=== PATIENT | female | born 1975 | race American Indian/Alaskan Native ===

== ENCOUNTER 2017-08-04 10:41 | Outpatient (CLI) | payer OTHER ==
--- NOTE | 2017-08-04 12:16 | XRay Report ---
LUMBOSACRAL SPINE, 3 VIEWS: History: Back pain Findings: The vertebral bodies, disk spaces and posterior elements are intact. No compression deformity or malalignment. There is mild diffuse facet arthropathy. The SI joints are symmetric and unremarkable. Impression: Mild lumbar spondylosis. No acute process noted.
== END 2017-08-04 10:42 | disposition home or self-care (01) ==
LOC: XRAY 10:41
PROVIDERS: ATTEND Internal Medicine
DX: M47.896 Other spondylosis, lumbar region (principal); M12.88 Other specific arthropathies, not elsewhere classified, other specified site; D21.9 Benign neoplasm of connective and other soft tissue, unspecified
CPT/HCPCS: 72100

== ENCOUNTER 2017-09-23 20:14 | Inpatient (IN) | payer MEDICAID, OTHER ==
[2017-09-23 20:55] LABS: Basophils % (Auto) 0.3 % (0.0-1.8); Eosinophils # (Auto) 0.1 K/mm3 (0.0-0.4); Eosinophils % (Auto) 1.1 % (0.0-4.3); Hematocrit 29.8 % (30.3-42.9); Hemoglobin 9.5 gm/dl (10.1-14.3); Lymphocytes # (Auto) 2.7 K/mm3 (1.2-5.4); Lymphocytes % (Auto) 30.2 % (13.4-35.0); Mean Corpuscular HGB Conc 32 % (30-34); Mean Corpuscular Hemoglobin 26 pg (28-32); Mean Corpuscular Volume 82 fl (79-97); Monocytes # (Auto) 0.5 K/mm3 (0.0-0.8); Monocytes % (Auto) 5.8 % (0.0-7.3); Platelet Count 355 K/mm3 (140-440); Red Blood Count 3.63 M/mm3 (3.65-5.03)
[2017-09-23 20:58] LABS: Red Cell Distribution Width 21.1 % (13.2-15.2)
[2017-09-23 21:26] LABS: INR 1.61 (0.87-1.13)
[2017-09-23 21:27] LABS: Partial Thromboplastin Time 28.6 Sec. (24.2-36.6)
--- NOTE | 2017-09-23 21:38 | Emergency Department Report ---
HPI - General Chief Complaint: Vaginal Bleeding Time Seen by Provider: 09/23/17 21:19 - HPI HPI: 42-year-old female presents to the emergency department with complaint of 2 day history of vaginal bleeding and the patient is on Coumadin. She is on Coumadin secondary to a history of a pulmonary embolism with multiple emboli that was found in February 2017. She has had her INR checked times and says that it is been low. She has irregular periods and until the bleeding started yesterday she had not had a period since February. She has gone through about 60 pads since this started. She has some lower abdominal and/or pelvic intermittent discomfort. She spoke to her BALE PILER, Dr. Hastings, who told her to come in to the emergency department if the bleeding continued, which it has. ED Past Medical Hx - Past Medical History Hx Hypertension: No Hx CVA: No Hx Heart Attack/AMI: No Hx Congestive Heart Failure: No Hx Diabetes: No Hx Deep Vein Thrombosis: No Hx Pulmonary Embolism: No Hx GERD: No Hx Liver Disease: No Hx Renal Disease: No Hx Sickle Cell Disease: No Hx Arthritis: No Hx Headaches / Migraines: No Hx Seizures: No Hx Kidney Stones: No Hx Psychiatric Treatment: No Hx Asthma: No Hx COPD: No Hx Tuberculosis: No Hx Dementia: No Hx HIV: No - Surgical History Hx Coronary Stent: No Hx Open Heart Surgery: No Hx Pacemaker: No Hx Internal Defibrillator: No Hx Cholecystectomy: No Hx Appendectomy: No Hx Breast Surgery: No - Social History Smoking Status: Never Smoker Substance Use Type: None - Medications Home Medications: Home Medications Medication Instructions Recorded Confirmed Last Taken Type Amoxicillin [Trimox] 500 mg PO Q6H 03/30/14 03/30/14 03/29/14 History 1 Butalb/Acetamin/Caff 50-325-40 1 each PO Q4H PRN #14 tablet 03/30/14 Unknown Rx [Fioricet] HYDROcodone/ACETAMINOPHEN [Lortab 1 mg PO Q6H 03/30/14 03/30/14 03/29/14 History 7.5-325 mg Tablet] Ibuprofen [Motrin] 800 mg PO Q8H PRN #14 tablet 03/30/14 Unknown Rx ED Review of Systems ROS: Stated complaint: VAGINAL BLEEDING TAKES WARFIN Other details as noted in HPI Comment: All other systems reviewed and negative Constitutional: denies: chills, fever Eyes: denies: eye pain, eye discharge, vision change ENT: denies: ear pain, throat pain Respiratory: denies: cough, shortness of breath, wheezing Cardiovascular: denies: chest pain, palpitations Gastrointestinal: abdominal pain. denies: vomiting Genitourinary: other (vaginal bleeding). denies: urgency, dysuria, discharge Musculoskeletal: denies: back pain, joint swelling, arthralgia Skin: denies: rash, lesions Neurological: denies: headache, weakness, paresthesias Physical Exam - Physical Exam Vital Signs: Vital Signs 09/23/17 09/23/17 09/23/17 20:27 21:10 21:21 Temperature 98.4 F Pulse Rate 97 H 129 H 102 H Respiratory 16 22 12 Rate Blood Pressure 103/55 99/63 O2 Sat by Pulse 100 99 Oximetry 09/23/17 21:34 Temperature 97.8 F Pulse Rate Respiratory Rate Blood Pressure O2 Sat by Pulse Oximetry Physical Exam: GENERAL: The patient is well-developed well-nourished. HENT: Normocephalic. Atraumatic. Patient has moist mucous membranes. EYES: Extraocular motions are intact. Pupils equal reactive to light bilaterally. NECK: Supple. Trachea is midline. CHEST/LUNGS: Clear to auscultation. There is no respiratory distress noted. HEART/CARDIOVASCULAR: Regular. There is no tachycardia. There is no murmur. ABDOMEN: Abdomen is soft, nontender. Patient has normal bowel sounds. There is no abdominal distention. SKIN: Skin is warm and dry. NEURO: The patient is awake, alert, and oriented. The patient is cooperative. The patient has no focal neurologic deficits. The patient has normal speech. MUSCULOSKELETAL: There is no tenderness or deformity. There is no limitation range of motion. There is no evidence of acute injury. : No vaginal or labial lesions seen. There is a moderate to large amount of blood seen in the vaginal vault ED Course Vital Signs 09/23/17 09/23/17 09/23/17 20:27 21:10 21:21 Temperature 98.4 F Pulse Rate 97 H 129 H 102 H Respiratory 16 22 12 Rate Blood Pressure 103/55 99/63 O2 Sat by Pulse 100 99 Oximetry 09/23/17 21:34 Temperature 97.8 F Pulse Rate Respiratory Rate Blood Pressure O2 Sat by Pulse Oximetry ED Medical Decision Making - Lab Data Result diagrams: 09/24/17 02:59 - Radiology Data Radiology results: report reviewed PROCEDURE: US PELVIS DUPLEX DOPPLER COMP TECHNIQUE: Real-time transabdominal sonography in multiple planes of the pelvis was performed. The pelvic structures were not optimally visualized. Transvaginal sonography was then performed to better evaluate the structures and/or abnormalities described below with image documentation. Grayscale, color flow Doppler imaging and velocity spectral waveform analysis of the ovaries was employed (duplex imaging). CPT 16084, 74507, and 21217 HISTORY: pelvic pain, heavy vaginal bleeding COMPARISON: No prior studies are available for comparison. FINDINGS: UTERUS Size: 11.2 x 6 x 7 cm. Endometrial thickness: 15 mm. Orientation: anteverted. Cervix: There is increased echogenic material just above the cervix in the lower uterine segment. The this complex area of echogenicity may represent multiple etiologies including small area of clot formation this region.. Fibroids/masses: There is a small mass in the uterine myometrium near the lower uterine segment on the left this measures 3.1 x 3.4 x 3.4 centimeters. A fibroid is suspected.. RIGHT Ovary: 3.5 x 1.9 x 3.4 cm. Appearance: 2 small cysts are identified 1 measures 14 millimeters. A 2nd measures 13 millimeters. Follicles are suspected.. Doppler images: Normal spectral waveforms and color flow. The systolic and diastolic velocities are within normal limits. LEFT Ovary: 4.2 x 2.1 x 2.2 cm. Appearance: There are few small follicles identified on the left ovary. Doppler images: Normal spectral waveforms and color flow. The systolic and diastolic velocities are within normal limits. Pelvic fluid: There is minimal fluid in the lower pelvis. Other: None. IMPRESSION: Within the uterus there is a uterine fibroid in the lower uterine segment measuring up to 3.4 centimeters. Mixed echogenic material just above the cervix may represent clot formation in this region. The endometrial pattern is slightly thickened at 15 millimeters. There are follicular cysts identified on each ovary. Minimal fluid in the lower pelvis is noted. PROCEDURE: TECHNIQUE: HISTORY: COMPARISON: FINDINGS: IMPRESSION: Transcribed By: [facility] Dictated By: DAVIS GUPTA MD Electronically Authenticated By: DAVIS GUPTA MD Signed Date/Time: 09/24/17 0029 - Medical Decision Making Patient presents with a 2 day history of heavy vaginal bleeding and some lower abdominal and pelvic discomfort. Ultrasound shows that there is a 3.5 cm fibroid. Her hemoglobin was 9.5 when she first arrived. I rechecked it about 4 hours after the first CBC and her hemoglobin had dropped down to 7.8, almost 2 g. For this reason, the patient will be admitted and was accepted by her OB/ BRANCH MANAGER, Dr. Hastings. He graciously allowed me to place bridging orders to mother baby. - Differential Diagnosis iron deficiency anemia, fibroids, dysfunctional uterine bleeding, malignanc Critical Care Time: No Critical care attestation.: If time is entered above; I have spent that time in minutes in the direct care of this critically ill patient, excluding procedure time. ED Disposition Clinical Impression: Dysfunctional uterine bleeding UTI (urinary tract infection) Qualifiers: Urinary tract infection type: acute cystitis Hematuria presence: without hematuria Qualified Code(s): N30.00 - Acute cystitis without hematuria Anemia Qualifiers: Anemia type: iron deficiency Iron deficiency anemia type: chronic blood loss Qualified Code(s): D50.0 - Iron deficiency anemia secondary to blood loss ( chronic) Fibroids Qualifiers: Uterine leiomyoma location: unspecified location Qualified Code(s): D25.9 - Leiomyoma of uterus, unspecified Disposition: DC-09 OP ADMIT IP TO THIS HOSP Is pt being admited?: Yes Condition: Stable Time of Disposition: 04:59
[2017-09-23 22:15] LABS: Bilirubin,Urine NEG (Negative); Nitrite,Urine NEG (Negative); Urobilinogen,Urine < 2.0 mg/dL (<2.0)
[2017-09-23 22:16] LABS: Color,Urine Red (Yellow)
[2017-09-23 22:17] LABS: Blood,Urine Large (Negative); RBC,Urine > 182.0 /HPF (0.0-6.0)
[2017-09-24] MEDS ORDERED: MACROBID PO ONE (00:03)
[2017-09-24] MEDS ORDERED: NACL 0.9% 1000 ML 1,000 ML IV ONE (00:35)
[2017-09-24] MEDS: SUBLIMAZE IV ONE ×2 (01:22→01:23)
--- NOTE | 2017-09-24 02:06 | Ultrasound Report ---
FINAL REPORT PROCEDURE: US PELVIS DUPLEX DOPPLER COMP TECHNIQUE: Real-time transabdominal sonography in multiple planes of the pelvis was performed. The pelvic structures were not optimally visualized. Transvaginal sonography was then performed to better evaluate the structures and/or abnormalities described below with image documentation. Grayscale, color flow Doppler imaging and velocity spectral waveform analysis of the ovaries was employed (duplex imaging). CPT 04766, 14372, and 61073 HISTORY: pelvic pain, heavy vaginal bleeding COMPARISON: No prior studies are available for comparison. FINDINGS: UTERUS Size: 11.2 x 6 x 7 cm. Endometrial thickness: 15 mm. Orientation: anteverted. Cervix: There is increased echogenic material just above the cervix in the lower uterine segment. The this complex area of echogenicity may represent multiple etiologies including small area of clot formation this region.. Fibroids/masses: There is a small mass in the uterine myometrium near the lower uterine segment on the left this measures 3.1 x 3.4 x 3.4 centimeters. A fibroid is suspected.. RIGHT Ovary: 3.5 x 1.9 x 3.4 cm. Appearance: 2 small cysts are identified 1 measures 14 millimeters. A 2nd measures 13 millimeters. Follicles are suspected.. Doppler images: Normal spectral waveforms and color flow. The systolic and diastolic velocities are within normal limits. LEFT Ovary: 4.2 x 2.1 x 2.2 cm. Appearance: There are few small follicles identified on the left ovary. Doppler images: Normal spectral waveforms and color flow. The systolic and diastolic velocities are within normal limits. Pelvic fluid: There is minimal fluid in the lower pelvis. Other: None. IMPRESSION: Within the uterus there is a uterine fibroid in the lower uterine segment measuring up to 3.4 centimeters. Mixed echogenic material just above the cervix may represent clot formation in this region. The endometrial pattern is slightly thickened at 15 millimeters. There are follicular cysts identified on each ovary. Minimal fluid in the lower pelvis is noted.
[2017-09-24 03:20] LABS: Hematocrit 23.9 % (30.3-42.9); Hemoglobin 7.8 gm/dl (10.1-14.3)
--- NOTE | 2017-09-24 04:33 | Ultrasound Report ---
FINAL REPORT PROCEDURE: US PELVIS DUPLEX DOPPLER COMP TECHNIQUE: Real-time transabdominal sonography in multiple planes of the pelvis was performed. The pelvic structures were not optimally visualized. Transvaginal sonography was then performed to better evaluate the structures and/or abnormalities described below with image documentation. Grayscale, color flow Doppler imaging and velocity spectral waveform analysis of the ovaries was employed (duplex imaging). CPT 53535, 08978, and 94327 HISTORY: pelvic pain, heavy vaginal bleeding COMPARISON: No prior studies are available for comparison. FINDINGS: UTERUS Size: 11.2 x 6 x 7 cm. Endometrial thickness: 15 mm. Orientation: anteverted. Cervix: There is increased echogenic material just above the cervix in the lower uterine segment. The this complex area of echogenicity may represent multiple etiologies including small area of clot formation this region.. Fibroids/masses: There is a small mass in the uterine myometrium near the lower uterine segment on the left this measures 3.1 x 3.4 x 3.4 centimeters. A fibroid is suspected.. RIGHT Ovary: 3.5 x 1.9 x 3.4 cm. Appearance: 2 small cysts are identified 1 measures 14 millimeters. A 2nd measures 13 millimeters. Follicles are suspected.. Doppler images: Normal spectral waveforms and color flow. The systolic and diastolic velocities are within normal limits. LEFT Ovary: 4.2 x 2.1 x 2.2 cm. Appearance: There are few small follicles identified on the left ovary. Doppler images: Normal spectral waveforms and color flow. The systolic and diastolic velocities are within normal limits. Pelvic fluid: There is minimal fluid in the lower pelvis. Other: None. IMPRESSION: Within the uterus there is a uterine fibroid in the lower uterine segment measuring up to 3.4 centimeters. Mixed echogenic material just above the cervix may represent clot formation in this region. The endometrial pattern is slightly thickened at 15 millimeters. There are follicular cysts identified on each ovary. Minimal fluid in the lower pelvis is noted. PROCEDURE: TECHNIQUE: HISTORY: COMPARISON: FINDINGS: IMPRESSION:
[2017-09-24] MEDS ORDERED: NACL 0.9% 500 ML 500 ML IV ONE (06:17)
[2017-09-24] MEDS ORDERED: BENADRYL IV ONE (06:17)
[2017-09-24] MEDS ORDERED: ZOFRAN IV PRN (06:17)
[2017-09-24] MEDS ORDERED: TYLENOL PO ONE (06:17)
[2017-09-24] MEDS ORDERED: TYLENOL PO PRN (06:17)
[2017-09-24] MEDS ORDERED: COLACE PO PRN (06:17)
--- NOTE | 2017-09-24 06:27 | Short Stay Summary ---
Short Stay Documentation Date of service: 09/24/17 Narrative H&P: Pt is a 42-year-old female presents to the emergency department with complaint of 2 day history of vaginal bleeding and the patient is on Coumadin. She is on Coumadin secondary to a history of a pulmonary embolism with multiple emboli that was found in February 2017. She has had her INR checked times and says that it is been low. She has irregular periods and until the bleeding started yesterday she had not had a period since February. She has gone through about 60 pads since this started. She has some lower abdominal and/or pelvic intermittent discomfort. She spoke to her CT SCAN TECH, Dr. Hastings, who told her to come in to the emergency department if the bleeding continued, which it has. A Pelvic ultrasound showed that her uterus was enlarged 11.2 x 6 x 7cm with a 3.5 cm fibroid. Her hemoglobin was 9.5 when she first arrived in the ER, and was rechecked 4 hours after the first CBC and her hemoglobin had dropped down to 7.8, almost 2 g. For this reason she will be admitted for a blood transfusion and Observation. - History Principal diagnosis: Menorrhagia; Uterine fibroids; on Coumadin H&P: obtained from office Past Medical History: anemia, pulmonary embolism, other (fibroids) Past Surgical History: Social history: no significant social history, - Allergies and Medications Current Medications: Allergies No Known Allergies Allergy (Verified 03/30/14 02:25) Home Medications Medication Instructions Recorded Confirmed Last Taken Type Amoxicillin [Trimox] 500 mg PO Q6H 03/30/14 03/30/14 03/29/14 History 1 Butalb/Acetamin/Caff 50-325-40 1 each PO Q4H PRN #14 tablet 03/30/14 Unknown Rx [Fioricet] HYDROcodone/ACETAMINOPHEN [Lortab 1 mg PO Q6H 03/30/14 03/30/14 03/29/14 History 7.5-325 mg Tablet] Ibuprofen [Motrin] 800 mg PO Q8H PRN #14 tablet 03/30/14 Unknown Rx - Physical exam General appearance: no acute distress Integumentary: no rash HEENT: Atraumatic Lungs: Clear to auscultation Breasts: deferred Heart: Regular rate Gastrointestinal: normal Female Genitourinary: deferred Rectal Exam: deferred Extremities: no ischemia Neurological: Normal gait, Normal speech - Hospital course Hospital course: Unremarkable. She did not receive the blood transfusion, and her H/H remained stable at 7.5/22.7 She will therefore be discharged to home today on Provera and Ferrous Sulfate, and will follow up in the office on Wednesday to schedule her Hysterectomy. - Disposition Condition at discharge: Good Disposition: - TO HOME OR SELFCARE - Discharge Diagnoses (1) Anemia Status: Chronic Qualifiers: Anemia type: iron deficiency Iron deficiency anemia type: chronic blood loss Qualified Code(s): D50.0 - Iron deficiency anemia secondary to blood loss (chronic) (2) Dysfunctional uterine bleeding Status: Chronic (3) Fibroids Status: Chronic Qualifiers: Uterine leiomyoma location: unspecified location Qualified Code(s): D25.9 - Leiomyoma of uterus, unspecified Short Stay Discharge Plan Activity: no restrictions Diet: regular Follow up with: WEI HUTCHISON MD [Primary Care Provider] - 7 Days PIERRE HASTINGS MD [Staff Physician] - 3 Days Prescriptions: Ferrous Sulfate [Feosol 325 MG tab] 325 mg PO BID #60 tablet HYDROcodone/APAP 5-325 [[place] 5-325 mg TAB] 1 each PO Q6H PRN #30 tablet PRN Reason: Pain, Moderate (4-6) Ibuprofen [Motrin] 800 mg PO Q8HR PRN #30 tablet PRN Reason: Moder Pain Unrelieved By [place] medroxyPROGESTERone ACETATE [Provera] 10 mg PO QDAY #10 tablet
[2017-09-24] MEDS: LACTATED RINGERS 1,000 ML IV SCH ×2 (07:40→17:39)
[2017-09-24] MEDS: PRENATAL VITAMIN PO SCH (10:27)
--- NOTE | 2017-09-24 14:34 | Consultation ---
<BRISSA DIAZ - Last Filed: 09/24/17 14:27> History of Present Illness - Reason for Consult Consult date: 09/24/17 history of PE on Coumadin - History of Present Illness 42-year-old female presents to the emergency department with complaint of 2 day history of vaginal bleeding and the patient is on Coumadin. She is on Coumadin secondary to a history of a pulmonary embolism with multiple emboli that was found in February 2017. She has had her INR checked times and says that it is been low. She has irregular periods and until the bleeding started yesterday she had not had a period since February. She has gone through about 60 pads since this started. She has some lower abdominal and/or pelvic intermittent discomfort. Past History Past Medical History: anemia, pulmonary embolism, other (fibroids) Past Surgical History: Social history: no significant social history, Medications and Allergies Allergies Allergy/AdvReac Type Severity Reaction Status Date / Time No Known Allergies Allergy Verified 03/30/14 02:25 Home Medications Medication Instructions Recorded Confirmed Last Taken Type Amoxicillin [Trimox] 500 mg PO Q6H 03/30/14 09/24/17 03/29/14 History 1 Butalb/Acetamin/Caff 50-325-40 1 each PO Q4H PRN #14 tablet 03/30/14 09/24/17 Unknown Rx [Fioricet] HYDROcodone/ACETAMINOPHEN [Lortab 1 mg PO Q6H 03/30/14 09/24/17 03/29/14 History 7.5-325 mg Tablet] Ibuprofen [Motrin] 800 mg PO Q8H PRN #14 tablet 03/30/14 09/24/17 Unknown Rx Warfarin [Coumadin] 5 mg PO QDAY 09/24/17 09/24/17 09/21/17 22:00 History Ferrous Sulfate [Feosol 325 MG tab] 325 mg PO BID #60 tablet 09/25/17 Unknown Rx HYDROcodone/APAP 5-325 [[place] 1 each PO Q6H PRN #30 tablet 09/25/17 Unknown Rx 5-325 mg TAB] Ibuprofen [Motrin] 800 mg PO Q8HR PRN #30 tablet 09/25/17 Unknown Rx medroxyPROGESTERone ACETATE 10 mg PO QDAY #10 tablet 09/25/17 Unknown Rx [Provera] Active Meds: Active Medications Acetaminophen (Tylenol) 650 mg PO Q4H PRN PRN Reason: Pain MILD(1-3)/Fever >100.5/TAN Last Admin: 09/24/17 13:36 Dose: 650 mg Docusate Sodium (Colace) 100 mg PO Q12H PRN PRN Reason: Constipation Lactated Ringer's (Lactated Ringers) 1,000 mls @ 125 mls/hr IV DIRECT [facility] Last Admin: 09/24/17 07:40 Dose: 125 mls/hr Multivitamins/Iron/Calcium ( Vitamin) 1 each PO QDAY [facility] Last Admin: 09/24/17 10:27 Dose: 1 each Ondansetron HCl (Zofran) 4 mg IV Q6H PRN PRN Reason: Nausea And Vomiting Review of Systems Constitutional: no weight loss, no weight gain, no chills Ears, nose, mouth and throat: no ear pain, no ear discharge, no hoarseness Breasts: no deferred, no change in shape, no skin changes Cardiovascular: no chest pain, no palpitations, no syncope Respiratory: no cough with sputum, no excessive sputum, no shortness of breath Gastrointestinal: no nausea, no change in bowel habits, no early satiety Genitourinary Female: abnormal vaginal bleeding, no flank pain, no urgency, no post void dribbling Menstruation: period heavy Rectal: no pain, no incontinence Musculoskeletal: no neck pain, no low back pain, no leg numbness/tingling, no atrophy Integumentary: no redness, no wounds, no jaundice Neurological: no parathesias, no tingling, no tremors Psychiatric: no sleep disturbances, no change in appetite, no disorientation Endocrine: no heat intolerance, no polydipsia, no excessive sweating Hematologic/Lymphatic: no easy bruising, no easy bleeding Allergic/Immunologic: no urticaria, no allergic rhinitis Exam - Constitutional Vitals: Temp Pulse Resp BP Pulse Ox 98.3 F 92 H 18 102/60 98 09/24/17 13:30 09/24/17 13:30 09/24/17 13:30 09/24/17 13:30 09/24/17 13:30 General appearance: Present: no acute distress, well-nourished - EENT Eyes: Present: PERRL ENT: hearing intact, clear oral mucosa - Neck Neck: Present: supple, normal ROM - Respiratory Respiratory effort: normal Respiratory: bilateral: CTA - Cardiovascular Heart Sounds: Present: S1 & S2. Absent: rub, click - Extremities Extremities: pulses symmetrical, No edema Peripheral Pulses: within normal limits - Abdominal General gastrointestinal: Present: soft, non-tender, non-distended, normal bowel sounds Female genitourinary: Present: deferred - Integumentary Integumentary: Present: clear, warm, dry - Musculoskeletal Musculoskeletal: gait normal, strength equal bilaterally - Psychiatric Psychiatric: appropriate mood/affect, intact judgment & insight - Neurologic Neurologic: CNII-XII intact, moves all extremities - Allied Health Allied health notes reviewed: nursing Results - Labs CBC & Chem 7: 09/24/17 02:59 Labs: Abnormal lab results 09/23/17 09/23/17 09/23/17 Range/Units 20:36 20:36 20:36 RBC 3.63 L (3.65-5.03) M/mm3 Hgb 9.5 L (10.1-14.3) gm/dl Hct 29.8 L (30.3-42.9) % MCH 26 L (28-32) pg RDW 21.1 H (13.2-15.2) % PT 20.1 H (12.2-14.9) Sec. INR 1.61 H (0.87-1.13) D-Dimer (0-234) ng/mlDDU Urine Blood (Negative) Urine WBC (Auto) (0.0-6.0) /HPF Crossmatch See Detail 09/23/17 09/24/17 09/24/17 Range/Units 20:51 02:59 12:03 RBC (3.65-5.03) M/mm3 Hgb 7.8 L (10.1-14.3) gm/dl Hct 23.9 L (30.3-42.9) % MCH (28-32) pg RDW (13.2-15.2) % PT (12.2-14.9) Sec. INR (0.87-1.13) D-Dimer 411.75 H (0-234) ng/mlDDU Urine Blood Large A (Negative) Urine WBC (Auto) 10.0 H (0.0-6.0) /HPF Crossmatch Assessment and Plan History of PE on Coumadin D-Dimer elevated, CTA chest and bilateral doppler ordered Menorrhagia CONTINUING EDUCATION DIRECTOR Dr Hastings following Anemia Hgb down to 7.8 from 9.5. Transfusion orders entered by Dr Hastings DVT prophylaxis SCDs <BRAVO WESLEY Elsie - Last Filed: 09/25/17 11:45> Medications and Allergies Active Meds: Active Medications Acetaminophen (Tylenol) 650 mg PO Q4H PRN PRN Reason: Pain MILD(1-3)/Fever >100.5/TAN Last Admin: 09/24/17 13:36 Dose: 650 mg Acetaminophen/Hydrocodone Bitart ([place] 5/325) 2 each PO Q6H PRN PRN Reason: Pain, Moderate (4-6) Last Admin: 09/24/17 17:26 Dose: 2 each Docusate Sodium (Colace) 100 mg PO Q12H PRN PRN Reason: Constipation Lactated Ringer's (Lactated Ringers) 1,000 mls @ 125 mls/hr IV DIRECT [facility] Last Admin: 09/25/17 02:48 Dose: 125 mls/hr Ketorolac Tromethamine (Toradol) 30 mg IV Q6H PRN PRN Reason: Pain, Moderate (4-6) Stop: 09/29/17 18:03 Last Admin: 09/24/17 18:31 Dose: 30 mg Multivitamins/Iron/Calcium ( Vitamin) 1 each PO QDAY [facility] Last Admin: 09/25/17 10:23 Dose: 1 each Ondansetron HCl (Zofran) 4 mg IV Q6H PRN PRN Reason: Nausea And Vomiting Exam - Constitutional Vitals: Temp Pulse Resp BP Pulse Ox 98.2 F 91 H 18 105/64 98 09/25/17 08:11 09/25/17 08:11 09/25/17 08:11 09/25/17 08:11 09/25/17 08:11 Results - Labs CBC & Chem 7: 09/25/17 08:06 09/24/17 15:01 Labs: Abnormal lab results 09/23/17 09/24/17 09/24/17 Range/Units 20:36 12:03 15:01 Hgb 8.0 L (10.1-14.3) gm/dl Hct 24.0 L (30.3-42.9) % D-Dimer 411.75 H (0-234) ng/mlDDU Creatinine (0.7-1.2) mg/dL Calcium (8.4-10.2) mg/dL Crossmatch See Detail 09/24/17 09/25/17 Range/Units 15:01 08:06 Hgb 7.5 L (10.1-14.3) gm/dl Hct 22.7 L (30.3-42.9) % D-Dimer (0-234) ng/mlDDU Creatinine 0.5 L (0.7-1.2) mg/dL Calcium 7.9 L (8.4-10.2) mg/dL Crossmatch Assessment and Plan I saw and evaluated the patient. I agree with the findings and the plan of care as documented in the PAs~note, with the following corrections and additions. Monitor closely. CT CHEST AND DOPPLER LOWER EXT NEGATIVE FOR PE OR DVT. Patient not sure about prior diagnosis of PE, while she knows she had PE more than 6 months ago, she is unable to tell me if recurrent but feels it was related to CONTRACEPTIVE SHOTS. Recommend discussing with PCP about continuation or with aquatics group fitness instructor.
[2017-09-24] MEDS ORDERED: NORCO 5/325 PO PRN (15:07)
[2017-09-24 16:00] LABS: BUN/Creatinine Ratio 16; Blood Urea Nitrogen 8 mg/dL (7-17); Calcium 7.9 mg/dL (8.4-10.2); Hemolysis Index 12
--- NOTE | 2017-09-24 17:53 | Cat Scan Report ---
FINAL REPORT EXAM: CT ANGIO CHEST HISTORY: Possible PE TECHNIQUE: Enhanced CT of the chest at 1.25 mm axial intervals following a pulmonary embolism protocol. Coronal and sagittal imaging were also obtained. Coronal oblique MIP projections were obtained. Contrast: Intravenous contrast given PRIORS: None. FINDINGS: There is no evidence for pulmonary embolism in the main pulmonary artery, right and left pulmonary arteries or their major distributions. However, CT does not exclude distal pulmonary emboli. Small patchy linear areas of density in the posterior costophrenic angles are probably atelectasis bilaterally. There is a small area of tree-in-bud formation in the posterior right upper lobe (axial image 35-36). This is likely due to mild infection. Otherwise, there is no evidence for parenchymal nodules, congestion, or pleural effusion. There is no evidence for mediastinal, hilar, or axillary adenopathy. Cardiovascular structures are within normal limits. No evidence for ventricular chamber enlargement is seen. Images through the lung bases include the upper abdomen which show no abnormalities of the visualized abdominal viscera. Bony structures demonstrate no focal abnormalities. IMPRESSION: 1. no evidence for pulmonary embolism. 2. Small area of tree-in-bud formation in the posterior right upper lobe, likely due to a mild infection 3. Patchy linear atelectasis in the the bilateral lung bases posteriorly.
[2017-09-24] MEDS ORDERED: TORADOL IV PRN (18:04)
[2017-09-25] MEDS: LACTATED RINGERS 1,000 ML IV SCH (02:48)
[2017-09-25 08:42] LABS: Hematocrit 22.7 % (30.3-42.9); Hemoglobin 7.5 gm/dl (10.1-14.3)
[2017-09-25 10:16] VITALS: BP 105/64
[2017-09-25] MEDS: PRENATAL VITAMIN PO SCH (10:23)
--- NOTE | 2017-09-25 17:55 | Progress Note ---
History Interval history: Patient seen and examined, in no acute distress Hospitalist Physical - Constitutional Vitals: Temp Pulse Resp BP Pulse Ox 98.2 F 91 H 18 105/64 98 09/25/17 08:11 09/25/17 08:11 09/25/17 08:11 09/25/17 08:11 09/25/17 08:11 General appearance: Present: no acute distress, well-nourished - EENT Eyes: Present: PERRL, EOM intact ENT: hearing intact, clear oral mucosa, dentition normal - Neck Neck: Present: supple, normal ROM - Respiratory Respiratory effort: normal Respiratory: bilateral: CTA - Cardiovascular Rhythm: regular Heart Sounds: Present: S1 & S2. Absent: systolic murmur, diastolic murmur - Extremities Extremities: no ischemia Peripheral Pulses: within normal limits - Abdominal General gastrointestinal: soft, non-tender, non-distended, normal bowel sounds Localized gastrointestinal: tender: diffuse, suprapubic - Integumentary Integumentary: Present: clear, warm - Psychiatric Psychiatric: appropriate mood/affect, intact judgment & insight, cooperative - Neurologic Neurologic: CNII-XII intact, focal deficits - Allied Health Allied health notes reviewed: nursing Results - Labs CBC & Chem 7: 09/25/17 08:06 09/24/17 15:01 Labs: Laboratory Last Values WBC 9.0 K/mm3 (4.5-11.0) 09/23/17 20:36 RBC 3.63 M/mm3 (3.65-5.03) L 09/23/17 20:36 Hgb 7.5 gm/dl (10.1-14.3) L 09/25/17 08:06 Hct 22.7 % (30.3-42.9) L 09/25/17 08:06 MCV 82 fl (79-97) 09/23/17 20:36 MCH 26 pg (28-32) L 09/23/17 20:36 MCHC 32 % (30-34) 09/23/17 20:36 RDW 21.1 % (13.2-15.2) H 09/23/17 20:36 Plt Count 355 K/mm3 (140-440) 09/23/17 20:36 Lymph % (Auto) 30.2 % (13.4-35.0) 09/23/17 20:36 [place] % (Auto) 5.8 % (0.0-7.3) 09/23/17 20:36 Eos % (Auto) 1.1 % (0.0-4.3) 09/23/17 20:36 Baso % (Auto) 0.3 % (0.0-1.8) 09/23/17 20:36 Lymph # 2.7 K/mm3 (1.2-5.4) 09/23/17 20:36 [place] # 0.5 K/mm3 (0.0-0.8) 09/23/17 20:36 Eos # 0.1 K/mm3 (0.0-0.4) 09/23/17 20:36 Baso # 0.0 K/mm3 (0.0-0.1) 09/23/17 20:36 Seg Neutrophils % 62.6 % (40.0-70.0) 09/23/17 20:36 Seg Neutrophils # 5.6 K/mm3 (1.8-7.7) 09/23/17 20:36 PT 20.1 Sec. (12.2-14.9) H 09/23/17 20:36 INR 1.61 (0.87-1.13) H 09/23/17 20:36 APTT 28.6 Sec. (24.2-36.6) 09/23/17 20:36 D-Dimer 411.75 ng/mlDDU (0-234) H 09/24/17 12:03 Sodium 143 mmol/L (137-145) 09/24/17 15:01 Potassium 4.0 mmol/L (3.6-5.0) 09/24/17 15:01 Chloride 104.3 mmol/L (98-107) 09/24/17 15:01 Carbon Dioxide 24 mmol/L (22-30) 09/24/17 15:01 Anion Gap 19 mmol/L 09/24/17 15:01 BUN 8 mg/dL (7-17) 09/24/17 15:01 Creatinine 0.5 mg/dL (0.7-1.2) L 09/24/17 15:01 Estimated GFR > 60 ml/min 09/24/17 15:01 BUN/Creatinine Ratio 16 % 09/24/17 15:01 Glucose 98 mg/dL (65-100) 09/24/17 15: Calcium 7.9 mg/dL (8.4-10.2) L 09/24/17 15:01 HCG, Quant < 2 mIU/mL (0-4) 09/23/17 20:36 Urine Color Red (Yellow) 09/23/17 20:51 Urine Turbidity Cloudy (Clear) 09/23/17 20:51 Urine pH 6.0 (5.0-7.0) 09/23/17 20:51 Ur Specific [place] 1.014 (1.003-1.030) 09/23/17 20:51 Urine Protein 100 mg/dl mg/dL (Negative) 09/23/17 20:51 Urine Glucose (UA) 50 mg/dL (Negative) 09/23/17 20:51 Urine Ketones Tr mg/dL (Negative) 09/23/17 20:51 Urine Blood Large (Negative) A 09/23/17 20:51 Urine Nitrite Neg (Negative) 09/23/17 20:51 Urine Bilirubin Neg (Negative) 09/23/17 20:51 Urine Urobilinogen < 2.0 mg/dL (<2.0) 09/23/17 20:51 Ur Leukocyte Esterase Neg (Negative) 09/23/17 20:51 Urine WBC (Auto) 10.0 /HPF (0.0-6.0) H 09/23/17 20:51 Urine RBC (Auto) > 182.0 /HPF (0.0-6.0) 09/23/17 20:51 Blood Type O POSITIVE 09/23/17:36 Antibody Screen Negative 09/23/17: Crossmatch See Detail 09/23/17:
== END 2017-09-25 15:45 | disposition home or self-care (01) | DRG 760 ==
LOC: ED 20:14 → OB 09-24 04:59 → OBSVTOIN 09-24 06:25
PROVIDERS: ADMIT Obstetrics & Gynecology; ATTEND Obstetrics & Gynecology
DX: D25.9 Leiomyoma of uterus, unspecified (principal); N39.0 Urinary tract infection, site not specified; N92.0 Excessive and frequent menstruation with regular cycle; N93.8 Other specified abnormal uterine and vaginal bleeding; D64.9 Anemia, unspecified; Z86.711 Personal history of pulmonary embolism
CPT/HCPCS: 36415; 71275; 76830; 80048; 81001; 84702; 85014; 85018; 85025; 85379; 85610; 85730; 86850; 86900; 86901; 86920; 93970; 93975; 96360; J1885; J3010; J7030; J7120; Q9967

== ENCOUNTER 2019-01-13 01:03 | Emergency (ER) | payer MEDICAID, OTHER ==
[2019-01-13] MEDS ORDERED: NACL 0.9% 1000 ML 1,000 ML IV ONE (03:15)
[2019-01-13] MEDS ORDERED: TORADOL IV ONE (03:15)
[2019-01-13 03:52] LABS: Basophils % (Auto) 0.5 % (0.0-1.8); Eosinophils % (Auto) 0.4 % (0.0-4.3); Hematocrit 27.2 % (30.3-42.9); Hemoglobin 8.3 gm/dl (10.1-14.3); Lymphocytes % (Auto) 17.8 % (13.4-35.0); Mean Corpuscular HGB Conc 31 % (30-34); Mean Corpuscular Volume 73 fl (79-97); Monocytes # (Auto) 0.6 K/mm3 (0.0-0.8); Platelet Count 265 K/mm3 (140-440); Red Blood Count 3.71 M/mm3 (3.65-5.03)
[2019-01-13 04:04] LABS: Red Cell Distribution Width 22.5 % (13.2-15.2)
[2019-01-13 04:53] LABS: Alanine Aminotransferase 17 units/L (7-56); Albumin 3.8 g/dL (3.9-5); BUN/Creatinine Ratio 22; Blood Urea Nitrogen 13 mg/dL (7-17); Calcium 8.7 mg/dL (8.4-10.2); Hemolysis Index 0
--- NOTE | 2019-01-13 05:25 | XRay Report ---
PROCEDURE: XR CHEST ROUTINE 2V TECHNIQUE: PA and lateral chest radiographs were obtained. HISTORY: flu like COMPARISONS: CT 09/24/2017. FINDINGS: No mediastinal shift. Cardiac silhouette is not enlarged. No pneumothorax, effusion, or focal pulmo nary opacity. No acute skeletal finding. IMPRESSION: No focal pulmonary opacity. This document is electronically signed by Arsh Coates MD., January 13 2019 05:24:03 AM ET
[2019-01-13 05:36] LABS: Bilirubin,Urine NEG (Negative); Blood,Urine NEG (Negative); Color,Urine Amber (Yellow); Mucus,Urine 3+ /HPF; Protein,Urine <15 mg/dL mg/dL (Negative)
--- NOTE | 2019-01-13 05:36 | Emergency Department Report ---
ED General Adult HPI - General Chief complaint: Pain General Stated complaint: CHILLS/TAN Time Seen by Provider: 01/13/19 03:00 Source: patient Mode of arrival: Ambulatory Limitations: No Limitations - History of Present Illness Initial comments: Patient is a 44-year-old -[place] female with a history of chronic iron deficiency anemia and PE who presents to the ED with a complaint of acute onset persistent severe diffuse body aches and pains, joint pains, headache and chills with diffuse dental pain and gum swelling for the last 1 week. Patient states that the headache gets worse when the toothache worsens. Patient however states that the main reason why she came to the ED was worsening chills but do not respond to medications that she has been taking for pain. Patient denies fever, dizziness, nausea, vomiting, chest pain, shortness of breath, abdominal pain, dysuria, urinary frequency and urgency, cough, nasal and sinus congestion or sore throat. MD Complaint: diffuse body aches with chills, headache and toothache -: Gradual, week(s) (1) Location: head, mouth, back, upper extremity (diffuse), lower extremity (diffuse) Radiation: non-radiation Severity scale (0 -10): 6 Quality: aching, sharp Consistency: constant Improves with: none Worsens with: none Associated Symptoms: denies other symptoms, fever/chills, headaches. denies: confusion, chest pain, cough, diaphoresis, loss of appetite, malaise, nausea/vomiting, rash, seizure, shortness of breath, syncope Treatments Prior to Arrival: NSAID - Related Data Home Medications Medication Instructions Recorded Confirmed Last Taken Amoxicillin [Trimox] 500 mg PO Q6H 03/30/14 09/24/17 03/29/14 1 HYDROcodone/ACETAMINOPHEN [Lortab 1 mg PO Q6H 03/30/14 09/24/17 03/29/14 7.5-325 mg Tablet] Warfarin [Coumadin] 5 mg PO QDAY 09/24/17 09/24/17 09/21/17 22:00 Previous Rx's Medication Instructions Recorded Last Taken Type Butalb/Acetamin/Caff 50-325-40 1 each PO Q4H PRN #14 tablet 03/30/14 Unknown Rx [Fioricet] Ibuprofen [Motrin] 800 mg PO Q8H PRN #14 tablet 03/30/14 Unknown Rx Ferrous Sulfate [Feosol 325 MG tab] 325 mg PO BID #60 tablet 09/25/17 Unknown Rx HYDROcodone/APAP 5-325 [[place] 1 each PO Q6H PRN #30 tablet 09/25/17 Unknown Rx 5-325 mg TAB] Ibuprofen [Motrin] 800 mg PO Q8HR PRN #30 tablet 09/25/17 Unknown Rx medroxyPROGESTERone ACETATE 10 mg PO QDAY #10 tablet 09/25/17 Unknown Rx [Provera] Clindamycin [Clindamycin CAP] 300 mg PO Q8HR #60 capsule 01/13/19 Unknown Rx Ketorolac [Toradol] 10 mg PO Q8H PRN #20 tablet 01/13/19 Unknown Rx tiZANidine [Zanaflex 4mg TAB] 4 mg PO Q8H PRN #15 tablet 01/13/19 Unknown Rx traMADol [Ultram] 50 mg PO Q6HR PRN #15 tablet 01/13/19 Unknown Rx Allergies Allergy/AdvReac Type Severity Reaction Status Date / Time No Known Allergies Allergy Verified 12/29/17 13:21 ED Review of Systems ROS: Stated complaint: CHILLS/TAN Other details as noted in HPI Comment: All other systems reviewed and negative Constitutional: denies: chills, fever Eyes: denies: eye pain, eye discharge, vision change ENT: dental pain. denies: ear pain, throat pain, congestion Respiratory: denies: cough, shortness of breath, wheezing Cardiovascular: denies: chest pain, palpitations, dyspnea on exertion, edema, syncope, paroxysmal nocturnal dyspnea Endocrine: no symptoms reported. denies: excessive sweating, increased thirst, increased urine, unexplained weight gain Gastrointestinal: denies: abdominal pain, nausea, vomiting, diarrhea Genitourinary: denies: urgency, dysuria, frequency, hematuria, discharge Musculoskeletal: back pain, arthralgia, myalgia, other (diffuse bdoy aches and pains). denies: joint swelling Skin: denies: rash, lesions Neurological: headache. denies: weakness, numbness, paresthesias, confusion, vertigo Psychiatric: denies: anxiety, depression Hematological/Lymphatic: denies: easy bleeding, easy bruising ED Past Medical Hx - Past Medical History Previous Medical History?: Yes Hx Hypertension: No Hx CVA: No Hx Heart Attack/AMI: No Hx Congestive Heart Failure: No Hx Diabetes: No Hx Deep Vein Thrombosis: No Hx Pulmonary Embolism: Yes (02/2017) Hx GERD: Yes Hx Liver Disease: No Hx Renal Disease: No Hx Sickle Cell Disease: No Hx Arthritis: No Hx Headaches / Migraines: Yes Hx Seizures: No Hx Kidney Stones: No Hx Psychiatric Treatment: No Hx Asthma: No Hx COPD: No Hx Tuberculosis: No Hx Dementia: No Hx HIV: No - Surgical History Past Surgical History?: No Hx Coronary Stent: No Hx Open Heart Surgery: No Hx Pacemaker: No Hx Internal Defibrillator: No Hx Cholecystectomy: No Hx Appendectomy: No Hx Breast Surgery: No - Social History Smoking Status: Never Smoker Substance Use Type: None - Medications Home Medications: Home Medications Medication Instructions Recorded Confirmed Last Taken Type Amoxicillin [Trimox] 500 mg PO Q6H 03/30/14 09/24/17 03/29/14 History 1 Butalb/Acetamin/Caff 50-325-40 1 each PO Q4H PRN #14 tablet 03/30/14 09/24/17 Unknown Rx [Fioricet] HYDROcodone/ACETAMINOPHEN [Lortab 1 mg PO Q6H 03/30/14 09/24/17 03/29/14 History 7.5-325 mg Tablet] Ibuprofen [Motrin] 800 mg PO Q8H PRN #14 tablet 03/30/14 09/24/17 Unknown Rx Warfarin [Coumadin] 5 mg PO QDAY 09/24/17 09/24/17 09/21/17 22:00 History Ferrous Sulfate [Feosol 325 MG tab] 325 mg PO BID #60 tablet 09/25/17 Unknown Rx HYDROcodone/APAP 5-325 [[place] 1 each PO Q6H PRN #30 tablet 09/25/17 Unknown Rx 5-325 mg TAB] Ibuprofen [Motrin] 800 mg PO Q8HR PRN #30 tablet 09/25/17 Unknown Rx medroxyPROGESTERone ACETATE 10 mg PO QDAY #10 tablet 09/25/17 Unknown Rx [Provera] Clindamycin [Clindamycin CAP] 300 mg PO Q8HR #60 capsule 01/13/19 Unknown Rx Ketorolac [Toradol] 10 mg PO Q8H PRN #20 tablet 01/13/19 Unknown Rx tiZANidine [Zanaflex 4mg TAB] 4 mg PO Q8H PRN #15 tablet 01/13/19 Unknown Rx traMADol [Ultram] 50 mg PO Q6HR PRN #15 tablet 01/13/19 Unknown Rx ED Physical Exam - General Limitations: No Limitations General appearance: alert, in no apparent distress - Head Head exam: Present: atraumatic, normocephalic, normal inspection - Eye Eye exam: Present: normal appearance, PERRL, EOMI - ENT ENT exam: Present: normal exam, mucous membranes moist, TM's normal bilaterally, normal external ear exam, other (swollen gums and dental caries) - Neck Neck exam: Present: normal inspection. Absent: tenderness, meningismus, full ROM, lymphadenopathy, thyromegaly - Respiratory Respiratory exam: Present: normal lung sounds bilaterally. Absent: respiratory distress, wheezes, rales, stridor, chest wall tenderness, decreased breath sounds, prolonged expiratory - Cardiovascular Cardiovascular Exam: Present: normal rhythm, tachycardia, normal heart sounds. Absent: systolic murmur, diastolic murmur, rubs, gallop - GI/Abdominal GI/Abdominal exam: Present: soft, normal bowel sounds. Absent: tenderness, rebound, hyperactive bowel sounds, hypoactive bowel sounds, organomegaly - Rectal Rectal exam: Present: deferred - Extremities Exam Extremities exam: Present: normal inspection, full ROM, tenderness (diffuse joint tenderness), normal capillary refill - Back Exam Back exam: Present: normal inspection, tenderness (diffuse palpable lumbosacral paraspinal musculoskeletal tenderness), muscle spasm, paraspinal tenderness. Absent: CVA tenderness (L) - Neurological Exam Neurological exam: Present: alert, oriented X3, CN II-XII intact, normal gait, reflexes normal - Psychiatric Psychiatric exam: Present: normal affect, normal mood - Skin Skin exam: Present: warm, dry, intact, normal color. Absent: rash ED Course Vital Signs 01/13/19 01:10 Temperature 98.2 F Pulse Rate 112 H Respiratory 20 Rate Blood Pressure 104/59 O2 Sat by Pulse 99 Oximetry - Reevaluation(s) Reevaluation #1: 01/13/19 05:39 Patient is alert and oriented 3 and is not in distress but anxious. Labs are drawn including urinalysis, and patient treated for pain and also given normal saline 1 L IV bolus. Chest x-ray shows no acute cardiopulmonary abnormalities. Lab test results are remarkable for chronic iron deficiency anemia which is baseline. On reevaluation, patient's pain is well controlled with medications and the patient was discharged home on pain medications and antibiotics for dental caries and gingivitis, and advised to follow-up with her dentist for further evaluation, and also follow-up with her primary care physician in 7-10 days for reevaluation. Patient however was advised to return to the ED immediately if symptoms get worse. ED Medical Decision Making - Lab Data Result diagrams: 01/13/19 03:27 01/13/19 03:27 - Radiology Data Radiology results: report reviewed, image reviewed Chest x-ray shows no acute cardiopulmonary abnormalities. - Medical Decision Making Patient is alert and oriented 3 and is not in distress but anxious. Labs are drawn including urinalysis, and patient treated for pain and also given normal saline 1 L IV bolus. Chest x-ray shows no acute cardiopulmonary abnormalities. Lab test results are remarkable for chronic iron deficiency anemia which is b aseline. On reevaluation, patient's pain is well controlled with medications and the patient was discharged home on pain medications and antibiotics for dental caries and gingivitis, and advised to follow-up with her dentist for further evaluation, and also follow-up with her primary care physician in 7-10 days for reevaluation. The vital signs are stable, patient heart rate also significantly improved. Patient however was advised to return to the ED immediately if symptoms get worse. - Differential Diagnosis flu like symptoms; chronic gingivitis; chronic dental caries Critical care attestation.: If time is entered above; I have spent that time in minutes in the direct care of this critically ill patient, excluding procedure time. ED Disposition Clinical Impression: Chronic gingivitis, Dental caries, Flu-like symptoms Disposition: - TO HOME OR SELFCARE Is pt being admited?: No Does the pt Need Aspirin: No Condition: Stable Instructions: Dental Caries (ED), Gingivitis (ED), Arthralgia (ED) Additional Instructions: Take medications with food, drink plenty of fluids and follow-up with your primary care physician Donya dentist in 7-10 days for reevaluation. Return to the ED immediately if symptoms get worse. Prescriptions: Clindamycin [Clindamycin CAP] 300 mg PO Q8HR #60 capsule Ketorolac [Toradol] 10 mg PO Q8H PRN #20 tablet PRN Reason: Pain traMADol [Ultram] 50 mg PO Q6HR PRN #15 tablet PRN Reason: Pain tiZANidine [Zanaflex 4mg TAB] 4 mg PO Q8H PRN #15 tablet PRN Reason: Spasms Referrals: SHREE PIZARRO MD [Primary Care Provider] - 3-5 Days Time of Disposition: 06:04 Print Language: PORTUGUESE
[2019-01-13 05:38] LABS: HCG Qualitative,Urine Negative (Negative)
[2019-01-13 06:18] VITALS: BP 116/66
== END 2019-01-13 06:17 | disposition home or self-care (01) ==
LOC: ED 01:03
DX: K05.10 Chronic gingivitis, plaque induced (principal); K02.9 Dental caries, unspecified; J11.1 Influenza due to unidentified influenza virus with other respiratory manifestations; G43.909 Migraine, unspecified, not intractable, without status migrainosus; Z86.711 Personal history of pulmonary embolism
CPT/HCPCS: 36415; 71046; 80053; 81001; 81025; 85025; 96374; 99284; J1885; J7030

== ENCOUNTER 2019-01-27 01:10 | Emergency (ER) | payer OTHER, MEDICAID ==
[2019-01-27 01:36] VITALS: BP 108/62
--- NOTE | 2019-01-27 02:41 | XRay Report ---
PROCEDURE: XR KNEE 1-2V RT TECHNIQUE: AP and lateral views of the right knee were obtained. HISTORY: right knee pain COMPARISONS: None FINDINGS: There is no evidence of fracture or dislocation. All 3 compartments are well-maintained. Joint fluid is not seen. IMPRESSION: Within normal limits.. This document is electronically signed by Juan Diego Lassiter MD., January 27 2019 02:39:35 AM ET
--- NOTE | 2019-01-27 02:42 | XRay Report ---
PROCEDURE: XR SPINE CERVICAL 2-3V TECHNIQUE: AP lateral and odontoid views of the cervical spine were obtained. HISTORY: neck pain COMPARISONS: None FINDINGS: There is very mild narrowing of the C4-C5 and C5-C6 disc. This endplate spurring at the same levels. The alignment appears normal. There is no evidence of fracture. The prevertebral soft tissues and C1- C2 articulation appear well maintained. IMPRESSION: Mild degenerative changes at the C4-5 and C5-C6 levels. No acute process.. This document is electronically signed by Juan Diego Lassiter MD., January 27 2019 02:40:49 AM ET
--- NOTE | 2019-01-27 02:44 | XRay Report ---
PROCEDURE: XR SPINE LUMBOSACRAL 2-3V TECHNIQUE: 3 views of the lumbar spine were submitted. HISTORY: lower back pain COMPARISONS: 08/04/2017 FINDINGS: There is stable moderate narrowing of the L5-S1 disc. There is minimal narrowing of the L1-L2 and L2- 3 discs. There is endplate spurring at several levels. The alignment appears normal. There is no evid ence of fracture. The SI joints appear normal. The soft tissues are well-maintained. IMPRESSION: Stable degenerative arthritic changes with spurring. No acute injury.. This document is electronically signed by Juan Diego Lassiter MD., January 27 2019 02:42:40 AM ET
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
== END 2019-01-27 03:35 | disposition home or self-care (01) ==
LOC: ED 01:10
DX: M46.92 Unspecified inflammatory spondylopathy, cervical region (principal); M79.10 Myalgia, unspecified site; G43.909 Migraine, unspecified, not intractable, without status migrainosus; K21.9 Gastro-esophageal reflux disease without esophagitis; Z79.899 Other long term (current) drug therapy; Z86.711 Personal history of pulmonary embolism; Z79.01 Long term (current) use of anticoagulants; V89.2XXA Person injured in unspecified motor-vehicle accident, traffic, initial encounter; Y93.89 Activity, other specified; Y92.488 Other paved roadways as the place of occurrence of the external cause; Y99.8 Other external cause status
CPT/HCPCS: 72040; 72100; 99283